=== PATIENT | female | born 1995 | race African-American/Black ===

== ENCOUNTER 2016-11-17 18:04 | Emergency (ER) | payer OTHER ==
[~2016-11-17] VITALS: Ht 162.6 cm; Wt 99.9 kg
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
[2016-11-17 21:20] VITALS: BP 120/70
[2016-11-18 08:28] LABS: NEGATIVE OBC STREP NEG; POSITIVE OBC STREP POS
== END 2016-11-17 21:23 | disposition home or self-care (01) ==
LOC: ER 18:11
DX: J02.9 Acute pharyngitis, unspecified (principal); T78.40XA Allergy, unspecified, initial encounter
CPT/HCPCS: 81025; 87070; 87880; 99284